=== PATIENT | male | born 1990 | race Caucasian/White ===

== ENCOUNTER → 2024-05-30 | Outpatient (CLI) | payer OTHER ==
[2024-05-30 14:42] VITALS: BP 134/79; PULSE 92; RESP 16; TEMP 98.4
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
== END ==
LOC: PNWHC3 13:50
PROVIDERS: ATTEND Specialist
DX: M99.73 Connective tissue and disc stenosis of intervertebral foramina of lumbar region (principal); M51.17 Intervertebral disc disorders with radiculopathy, lumbosacral region
CPT/HCPCS: 99211